=== PATIENT | female | born 1985 | race Caucasian/White ===

== ENCOUNTER 2017-02-15 14:36 | Emergency (ER) | payer BC ==
--- NOTE | 2017-02-15 15:21 | EDM.PDOC ---
ED HPI GENERAL MEDICAL PROBLEM - General Chief Complaint: Upper Extremity Injury/Pain Stated Complaint: LEFT THUMB PAIN Time Seen by Provider: 02/15/17 15:10 Source of Information: Reports: Patient History Limitations: Reports: No Limitations - History of Present Illness INITIAL COMMENTS - FREE TEXT/NARRATIVE: HISTORY AND PHYSICAL: History of present illness: [Patient comes to the emergency room for evaluation of a laceration to her right thumb caused by a rotary drier that occurred at 1:30 this morning. She presented to the [facility] and wound was dressed. Her thumb was injected with lidocaine for pain control and she experience any pain initially after the dressing was placed. Throughout the day her thumb has begun to throb more and she questions if the dressing is on too tight. She presents to the ER for evaluation of these concerns.] Review of systems: As per history of present illness and below otherwise all systems reviewed and negative. Past medical history: As per history of present illness and as reviewed below otherwise noncontributory. Surgical history: As per history of present illness and as reviewed below otherwise noncontributory. Social history: No reported history of drug or alcohol abuse. Family history: As per history of present illness and as reviewed below otherwise noncontributory. Physical exam: HEENT: Atraumatic, normocephalic. 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 Bleeding is well controlled. The finger is warm and pink. Cap refill less than 2 seconds. Neurovascular unremarkable. Neuro: Awake, alert, oriented. Motor and sensory unremarkable throughout. Exam nonfocal. Impression: [Follow-up right thumb laceration] Plan: [Discussed with patient that the wound looks good and she does not appear to have any decreased blood flow due to a tight dressing. The wound is redressed by nursing staff. The patient is instructed to follow-up with her primary care as instructed through [facility] this morning. She is in agreement with today's plan. All of her questions are answered and concerns are addressed.] Definitive disposition and diagnosis as appropriate pending reevaluation and review of above. Left thumb Pain Score (Numeric/FACES): 7 - Related Data Allergies Allergy/AdvReac Type Severity Reaction Status Date / Time Penicillins Allergy Severe Other Verified 02/15/17 15:04 chapstick Allergy Swelling Uncoded 02/15/17 15:04 Home Meds: Home Meds Ibuprofen 400 mg PO PRN 02/15/17 [History] Past Medical History - Past Health History Medical/Surgical History: Denies Medical/Surgical History - Infectious Disease History Infectious Disease History: Reports: None Social & Family History - Family History Family Medical History: Noncontributory - Tobacco Use Smoking Status *Q: Never Smoker Second Hand Smoke Exposure: No - Caffeine Use Caffeine Use: Reports: None - Recreational Drug Use Recreational Drug Use: No Review of Systems - Review of Systems Review Of Systems: ROS reveals no pertinent complaints other than HPI. ED EXAM, GENERAL - Physical Exam Exam: See Below Course - Vital Signs Last Recorded V/S: Last Vital Signs Temp 96.8 F 02/15/17 15:44 Pulse 72 02/15/17 15:44 Resp 18 02/15/17 15:44 BP 129/71 02/15/17 15:44 Pulse Ox 99 02/15/17 15:44 - Orders/Labs/Meds Meds: Medications Discontinued Medications Generic Name Dose Route Start Last Admin Trade Name Tara PRN Reason Stop Dose Admin Bacitracin 1 dose 02/15/17 15:24 02/15/17 15:37 Bacitracin Oint 1 Gm TOP 02/15/17 15:25 1 dose ONETIME ONE Administration Departure - Departure Time of Disposition: 15:22 Disposition: Home, Self-Care 01 Condition: Good Clinical Impression: Laceration of right thumb - Discharge Information Instructions: Laceration Care, Adult Referrals: PCP,None [Primary Care Provider] - Forms: ED Department Discharge Additional Instructions: The following information is given to patients seen in the emergency department who are being discharged to home. This information is to outline your options for follow-up care. We provide all patients seen in our emergency department with a follow-up referral. The need for follow-up, as well as the timing and circumstances, are variable depending upon the specifics of your emergency department visit. If you don't have a primary care physician on staff, we will provide you with a referral. We always advise you to contact your personal physician following an emergency department visit to inform them of the circumstance of the visit and for follow-up with them and/or the need for any referrals to a consulting specialist. The emergency department will also refer you to a specialist when appropriate. This referral assures that you have the opportunity for follow-up care with a specialist. All of these measure are taken in an effort to provide you with optimal care, which includes your follow-up. Under all circumstances we always encourage you to contact your private physician who remains a resource for coordinating your care. When calling for follow-up care, please make the office aware that this follow-up is from your recent emergency room visit. If for any reason you are refused follow-up, please contact the [facility] emergency department at and asked to speak to the emergency department charge nurse. [facility] [address] [place] [id number] Follow-up with your PCP as previously instructed. Tylenol and ibuprofen as needed for discomfort. Return to ER as needed as discussed.
[2017-02-15] MEDS ORDERED: Bacitracin Oint 1 GM U/D Packet TOP ONE (15:24)
[2017-02-15 15:45] VITALS: BP 129/71
== END 2017-02-15 15:53 | disposition home or self-care (01) ==
LOC: MW.ED 14:36
DX: S68.011A Complete traumatic metacarpophalangeal amputation of right thumb, initial encounter (principal); Z88.0 Allergy status to penicillin; W29.8XXA Contact with other powered hand tools and household machinery, initial encounter
CPT/HCPCS: 99282

== ENCOUNTER 2023-03-01 06:13 | Day surgery (SDC) | payer BC ==
[~2023-03-01 06:13] MED LIST: Sodium Chloride 0.9% 10 ML Syringe FLUSH PRN; Sodium Chloride 0.9% 2.5 ML Syringe FLUSH PRN; Sodium Chloride 0.9% 20 ML SDV IV PRN
[2023-03-01] MEDS ORDERED: Dexamethasone 4 MG/ML 5 ML MDV IVPUSH ONE (06:14)
[2023-03-01] MEDS ORDERED: Ketorolac 30 MG/ML SDV IVPUSH ONE ×2 (06:14→10:01)
[2023-03-01] MEDS ORDERED: Sugammadex Sodium 200 MG/2 ML VIAL IV ONE (06:14)
[2023-03-01] MEDS ORDERED: Lactated Ringers 1,000 ML IV SCH ×2 (06:45→10:15)
[2023-03-01 06:50] LABS: HEMATOCRIT 42.2 % (37.0-47.0); HEMOGLOBIN 14.3 g/dL (12.0-16.0); MEAN CORPUSCULAR HGB CONC 33.9 g/dL (32.0-36.0); MEAN CORPUSCULAR VOLUME 82.7 fL (83.0-99.0); MEAN PLATELET VOLUME 9.8 fL (9.4-12.3); PLATELET COUNT,PLT 236 K/uL (150-400); WHITE BLOOD CELL COUNT,WBC 9.39 K/uL (3.9-11.3)
[2023-03-01] MEDS ORDERED: Clindamycin Phosphate in D5W 600 MG in Premix Bag 1 BAG IV ONE ×2 (07:00)
[2023-03-01] MEDS ORDERED: Clindamycin Phosphate in D5W 300 MG in Premix Bag 1 BAG IV ONE ×2 (07:00)
[2023-03-01] MEDS ORDERED: Gentamicin 370 MG in Sodium Chloride 0.9% 100 ML IV ONE (07:00)
[2023-03-01] MEDS ORDERED: Phenylephrine HCl 0.5 MG/5 ML AMP IVPUSH PRN (07:07)
[2023-03-01] MEDS ORDERED: ePHEDrine 50 MG/ML SDV IVPUSH PRN (07:07)
[2023-03-01] MEDS ORDERED: Morphine 2 MG/ML SYRINGE IVPUSH PRN (07:08)
[2023-03-01] MEDS ORDERED: HYDROmorphone 1 MG/ML Syringe IVPUSH PRN (07:08)
[2023-03-01] MEDS ORDERED: Naloxone 0.4 MG/ML SDV IVPUSH PRN (07:08)
[2023-03-01] MEDS ORDERED: fentaNYL 50 MCG/ML SDV IVPUSH PRN (07:08)
[2023-03-01] MEDS ORDERED: droPERidol 5 MG/2 ML SDV IVPUSH PRN (07:08)
[2023-03-01] MEDS ORDERED: Metoclopramide 10 MG/2 ML SDV IVPUSH PRN (07:08)
[2023-03-01] MEDS ORDERED: Albuterol 0.083% 2.5 MG/3 ML Neb Soln NEB PRN (07:08)
[2023-03-01] MEDS ORDERED: Ondansetron 4 MG/2 ML SDV IVPUSH PRN ×2 (07:08→10:01)
[2023-03-01 07:15] LABS: CALCIUM 9.3 mg/dL (8.5-10.1); CARBON DIOXIDE,CO2 23.8 mmol/L (21.0-32.0); CREATININE 0.9 mg/dL (0.6-1.0); EST CRCL DRUG DOSING (CG) 77.01 mL/min; POTASSIUM,K 3.9 mmol/L (3.5-5.1)
[2023-03-01] MEDS ORDERED: Ropivacaine HCl/PF 400 MG in Premix Bag 1 BAG EPIDUR SCH (07:15)
[2023-03-01] MEDS ORDERED: Bupivacaine 0.25% 30 ML SDV ONE (07:24)
[2023-03-01] MEDS ORDERED: Methylene Blue 1% 10 ML SDV ONE (07:24)
[2023-03-01] MEDS ORDERED: Ondansetron 4 MG/2 ML SDV ONE (07:25)
[2023-03-01] MEDS ORDERED: Metoclopramide 10 MG/2 ML SDV ONE (07:25)
[2023-03-01] MEDS ORDERED: Scopolamine 1.5 MG Transdermal Patch ONE (07:25)
[2023-03-01] MEDS ORDERED: Magnesium Sulfate (4.06 MEQ/ML) 5 GM/10 ML SDV ONE (07:25)
[2023-03-01] MEDS ORDERED: Dexmedetomidine 200 MCG/2 ML SDV ONE (07:25)
[2023-03-01] MEDS ORDERED: Morphine 10 MG/ML SDV ONE (07:38)
[2023-03-01] MEDS ORDERED: fentaNYL 100 MCG/2 ML SDV ONE (07:38)
[2023-03-01] MEDS ORDERED: Water For Injection, Sterile 20 ML ONE (07:39)
[2023-03-01] MEDS ORDERED: Rocuronium Bromide 50 MG/5 ML Syringe ONE (07:40)
[2023-03-01] MEDS ORDERED: propofoL 100 ML ONE (07:41)
[2023-03-01] MEDS ORDERED: Ropivacaine 0.5% 5 MG/ML 30 ML SDV ONE (07:42)
[2023-03-01] MEDS ORDERED: Lidocaine 2% 5 ML SDV ONE (07:42)
[2023-03-01] MEDS ORDERED: Tranexamic Acid 1,000 MG/10 ML Vial ONE (08:35)
[2023-03-01] MEDS ORDERED: propofoL 50 ML ONE (08:53)
[2023-03-01] MEDS ORDERED: Fluorescein 5 ML Vial ONE (09:20)
[2023-03-01] MEDS ORDERED: Benzocaine/Menthol 20%-0.5% Spray 78 GM Cannister ONE (09:33)
[2023-03-01] MEDS ORDERED: Morphine 4 MG/ML Syringe IVPUSH PRN (10:01)
[2023-03-01] MEDS ORDERED: Promethazine 25 MG/ML SDV IM PRN (10:01)
[2023-03-01] MEDS ORDERED: Acetaminophen/oxyCODONE 325-5 MG Tab PO PRN ×2 (10:01)
[2023-03-01] MEDS ORDERED: Ketorolac 30 MG/ML SDV IVPUSH SCH (10:15)
[2023-03-01] MEDS: Ketorolac 30 MG/ML SDV IVPUSH SCH ×2 (17:28→23:46)
[2023-03-01] MEDS: Docusate Sodium 100 MG Cap PO SCH (21:55)
[2023-03-02] MEDS ORDERED: Acetaminophen 500 MG Tab PO PRN (04:57)
[2023-03-02] MEDS: Ketorolac 30 MG/ML SDV IVPUSH SCH (05:37)
[2023-03-02 06:07] LABS: BASOPHILS ABSOLUTE AUTO 0.02 K/uL (0.00-0.20); BASOPHILS PERCENT AUTO 0.1 % (0.0-1.0); HEMATOCRIT 38.1 % (37.0-47.0); HEMOGLOBIN 12.7 g/dL (12.0-16.0); IMMATURE GRAN ABSOLUTE AUTO 0.08 K/uL (0.00-0.05); IMMATURE GRAN PERCENT AUTO 0.5 % (0.0-0.4); LYMPHOCYTES ABSOLUTE AUTO 2.22 K/uL (1.00-4.80); LYMPHOCYTES PERCENT AUTO 13.8 % (24.0-44.0); MEAN CORPUSCULAR HEMOGLOBIN 28.6 pg (28.0-32.0); MEAN CORPUSCULAR HGB CONC 33.3 g/dL (32.0-36.0); MEAN CORPUSCULAR VOLUME 85.8 fL (83.0-99.0); MEAN PLATELET VOLUME 10.3 fL (9.4-12.3); MONOCYTES ABSOLUTE AUTO 0.81 K/uL (0.00-0.80); NEUTROPHILS PERCENT AUTO 80.6 % (41.0-71.0); PLATELET COUNT,PLT 274 K/uL (150-400); RED BLOOD CELL COUNT 4.44 M/uL (4.10-5.30); WHITE BLOOD CELL COUNT,WBC 16.12 K/uL (3.9-11.3)
[2023-03-02 06:21] LABS: CALCIUM 7.8 mg/dL (8.5-10.1); CARBON DIOXIDE,CO2 26.2 mmol/L (21.0-32.0); CREATININE 1.2 mg/dL (0.6-1.0); EST CRCL DRUG DOSING (CG) 57.76 mL/min; POTASSIUM,K 4.2 mmol/L (3.5-5.1)
[2023-03-02 07:33] VITALS: PULSE 63
[2023-03-02] MEDS: Docusate Sodium 100 MG Cap PO SCH ×2 (07:35→09:14)
[2023-03-02 10:23] VITALS: BP 133/69
== END 2023-03-02 10:40 | disposition home or self-care (01) ==
LOC: MW.SDS 06:13 → MW.MS 10:48 → MW.SDS 03-02 10:40
PROVIDERS: ATTEND Obstetrics & Gynecology
DX: D25.1 Intramural leiomyoma of uterus (principal); N84.0 Polyp of corpus uteri; N88.4 Hypertrophic elongation of cervix uteri; F41.9 Anxiety disorder, unspecified; I10 Essential (primary) hypertension; Z88.0 Allergy status to penicillin; Z88.1 Allergy status to other antibiotic agents; Z79.899 Other long term (current) drug therapy
CPT/HCPCS: 36415; 58552; 80048; 84703; 85025; 85027; 86850; 86900; 86901; A9270; J0131; J1100; J1885; J2270; J2704; J2765; J2795; J3010; J3475; J3490; J7030; J7120; Q9968; J2405